=== PATIENT | female | born 1950 | race Caucasian/White ===

== ENCOUNTER 2019-01-25 18:25 | Inpatient (IN) | payer MEDICARE, MEDICAID ==
[~2019-01-25] VITALS: Ht 157.5 cm; Wt 79.4 kg
[~2019-01-25 18:25] MED LIST: ALBU6.7H IH; FLUO-191 PO; HYDR-4031 PO; LISI-661 PO; OMEP20 PO; QUET100T PO; TOPI100T37 PO; TRAZ-220 PO
[2019-01-25 19:01] LABS: BASOPHILS % (AUTO) 1.4 % (0.0-2.0); EOSINOPHILS % (AUTO) 1.3 % (1.0-6.0); HEMATOCRIT 34.8 % (36-46); HEMOGLOBIN 11.8 g/dL (12.0-16.0); LYMPHOCYTES # (AUTO) 1.8 K/uL (1.0-4.8); LYMPHOCYTES % (AUTO) 36.3 % (22.0-44.0); MEAN CORPUSCULAR HGB CONC 33.7 G/dL (31.0-37.0); MEAN CORPUSCULAR VOLUME 89 fL (80-100); MONOCYTES # (AUTO) 0.4 K/uL (0.1-1.0); MONOCYTES % (AUTO) 7.7 % (2.0-9.0); NEUTROPHILS # (AUTO) 2.7 K/uL (1.8-7.7); NEUTROPHILS % (AUTO) 53.3 % (40.0-70.0); PLATELET COUNT (AUTO) 348 K/uL (150-450); RED BLOOD CELL COUNT(AUTO) 3.92 MIL/uL (4.00-5.20); RED CELL DISTRIBUTION WIDTH 13.8 % (11.5-14.5)
[2019-01-25 19:11] LABS: ANION GAP 12 mmol/L (8-16); CALCIUM, TOTAL 8.9 mg/dL (8.8-10.5); CARBON DIOXIDE 23 mmol/L (22-29); CHLORIDE 106 mmol/L (98-107); GLOMERULAR FILTR. RATE CALC 45 mL/min (>60); GLUCOSE,RANDOM 99 mg/dL (70-110); POTASSIUM 3.2 mmol/L (3.5-5.1); SODIUM SERUM 141 mmol/L (136-145); UREA NITROGEN, BLOOD 15 mg/dL (7-18)
[2019-01-25 19:16] LABS: ALANINE AMINOTRANSFERASE 26 U/L (12-78); ALBUMIN 3.5 g/dL (3.4-5.0); ALKALINE PHOSPHATASE 116 U/L (46-116); ASPARTATE AMINOTRANSFERASE 17 U/L (15-37); BILIRUBIN,TOTAL 0.4 mg/dL (0.1-1.0); TOTAL PROTEIN, SERUM 7.6 g/dL (6.4-8.2)
[2019-01-25] MEDS ORDERED: LORazepam 1 MG TABLET PO PRN (20:00)
[2019-01-25] MEDS ORDERED: HALOPERIDOL 5 MG TABLET PO PRN (20:00)
[2019-01-25] MEDS ORDERED: ZOLPIDEM TARTRATE 10 MG TABLET PO PRN (20:00)
[2019-01-25 20:46] LABS: HEMOGLOBIN A1C 5.9 % (4.5-6.2)
[2019-01-25 20:57] LABS: CHOL/HDL RATIO 2.2 (3.9-5.7); CHOLESTEROL 182 mg/dL (131-200); FREE T4 (FREE THYROXINE) 1.17 ng/dL (0.76-1.46); HDL CHOLESTEROL 81 mg/dL (40-60); LDL CHOL (CALC.) 87 mg/dL (0-130); THYROID STIMULATING HORMONE 1.42 uIU/mL (0.36-3.74); TRIGLYCERIDES 71 mg/dL (15-150)
[2019-01-25] MEDS ORDERED: POTASSIUM CHLORIDE 10% 40 MEQ/30 ML LIQUID UDCUP PO ONE (21:15)
[2019-01-25 22:39] VITALS: BP 140/66
[2019-01-25] MEDS ORDERED: BENZOCAINE/MENTHOL LOZENGE MM PRN (23:30)
[2019-01-25] MEDS ORDERED: ONDANSETRON HCL 4 MG TABLET PO PRN (23:30)
[2019-01-25] MEDS ORDERED: ALBUTEROL SULFATE HFA 90 MCG/PUFF 8 GM INHALER IH PRN (23:30)
[2019-01-25] MEDS ORDERED: ACETAMINOPHEN 325 MG TABLET PO PRN (23:30)
[2019-01-25] MEDS ORDERED: MAG HYDROX/AL HYDROX/SIMETH ES 30 ML SUSPENSION UDCUP PO PRN (23:30)
[2019-01-25] MEDS ORDERED: PETROLATUM,WHITE 28 GM JELLY TP PRN (23:30)
[2019-01-25] MEDS ORDERED: MAGNESIUM HYDROXIDE SUSPENSION 30 ML UDCUP PO PRN (23:30)
[2019-01-25] MEDS ORDERED: CloNIDine HCL 0.1 MG TABLET PO PRN (23:30)
[2019-01-25] MEDS ORDERED: BACITRACIN 28.4 GM OINTMENT TP PRN (23:30)
[2019-01-25] MEDS ORDERED: LOPERAMIDE HCL 2 MG CAPSULE PO PRN (23:30)
[2019-01-26] MEDS: DOCUSATE SODIUM 100 MG CAPSULE PO SCH (10:09)
[2019-01-26] MEDS: OMEPRAZOLE 20 MG CAPSULE PO SCH (10:09)
[2019-01-26 12:46] VITALS: BP 159/86
[2019-01-26 16:18] VITALS: BP 113/81
[2019-01-26] MEDS: TOPIRAMATE 100 MG TABLET PO SCH (16:29)
[2019-01-26] MEDS: METOPROLOL TARTRATE 25 MG TABLET PO SCH (16:30)
[2019-01-26 20:38] VITALS: BP 122/82
[2019-01-26] MEDS: IBUPROFEN 600 MG TABLET PO PRN (20:38)
[2019-01-26] MEDS ORDERED: OLANZapine 5 MG TABLET PO SCH (21:00)
[2019-01-27 07:00] LABS: POTASSIUM 4.2 mmol/L (3.5-5.1)
[2019-01-27 08:05] VITALS: BP 138/72
[2019-01-27] MEDS ORDERED: DULoxetine HCL 30 MG CAPSULE PO SCH (09:00)
[2019-01-27] MEDS: CHOLECALCIFEROL (VIT D3) 1,000 UNITS TABLET PO SCH (09:14)
[2019-01-27] MEDS: ASPIRIN 81 MG EC TABLET PO SCH (09:15)
[2019-01-27] MEDS: OMEPRAZOLE 20 MG CAPSULE PO SCH (09:15)
[2019-01-27] MEDS: LISINOPRIL 20 MG TABLET PO SCH (09:15)
[2019-01-27] MEDS: METOPROLOL TARTRATE 25 MG TABLET PO SCH ×2 (09:15→16:43)
[2019-01-27] MEDS: DOCUSATE SODIUM 100 MG CAPSULE PO SCH (09:15)
[2019-01-27] MEDS: TOPIRAMATE 100 MG TABLET PO SCH ×2 (09:16→16:42)
[2019-01-27] MEDS ORDERED: DULoxetine HCL 30 MG CAPSULE PO ONE (12:45)
[2019-01-27 19:18] VITALS: BP 134/60
[2019-01-27] MEDS ORDERED: OLANZapine 10 MG TABLET PO SCH (21:00)
[2019-01-28 07:10] LABS: ANION GAP 12 mmol/L (8-16); CARBON DIOXIDE 19 mmol/L (22-29); CHLORIDE 109 mmol/L (98-107); CREATININE 0.91 mg/dL (0.60-1.30); GLOMERULAR FILTR. RATE CALC > 60 mL/min (>60); GLUCOSE,RANDOM 103 mg/dL (70-110); POTASSIUM 3.8 mmol/L (3.5-5.1); SODIUM SERUM 140 mmol/L (136-145); UREA NITROGEN, BLOOD 17 mg/dL (7-18)
[2019-01-28] MEDS: METOPROLOL TARTRATE 25 MG TABLET PO SCH ×2 (08:38→16:20)
[2019-01-28] MEDS: OMEPRAZOLE 20 MG CAPSULE PO SCH (08:38)
[2019-01-28] MEDS: CHOLECALCIFEROL (VIT D3) 1,000 UNITS TABLET PO SCH (08:38)
[2019-01-28] MEDS: ASPIRIN 81 MG EC TABLET PO SCH (08:39)
[2019-01-28] MEDS: TOPIRAMATE 100 MG TABLET PO SCH ×2 (08:39→16:20)
[2019-01-28] MEDS: DOCUSATE SODIUM 100 MG CAPSULE PO SCH (08:39)
[2019-01-28] MEDS: LISINOPRIL 20 MG TABLET PO SCH (08:39)
[2019-01-28 08:45] VITALS: BP 160/71
[2019-01-28] MEDS: IBUPROFEN 600 MG TABLET PO PRN (08:57)
[2019-01-28] MEDS ORDERED: DULoxetine HCL 60 MG CAPSULE PO SCH (09:00)
[2019-01-28] MEDS ORDERED: OLAN10TA3 PO (15:58)
[2019-01-28] MEDS ORDERED: DULO60CA44 PO (15:59)
[2019-01-28] MEDS ORDERED: METO25 PO (16:00)
[2019-01-28] MEDS ORDERED: LISI-662 PO (16:00)
[2019-01-28] MEDS ORDERED: OMEP20 PO (16:01)
[2019-01-28] MEDS ORDERED: DSS100 PO (16:01)
[2019-01-28] MEDS ORDERED: ASPI81 PO (16:02)
[2019-01-28] MEDS ORDERED: VITAD1000 PO (16:02)
[2019-01-28] MEDS ORDERED: MVITFE PO (16:03)
[2019-01-29] MEDS ORDERED: MULTIVITAMINS WITH IRON TABLET PO SCH (08:00)
== END 2019-01-28 17:15 | disposition home or self-care (01) | DRG 885 ==
LOC: EMS 18:27 → 3EI 21:17
PROVIDERS: ADMIT Psychiatry & Neurology Psychiatry; ATTEND Psychiatry & Neurology Psychiatry
DX: F25.0 Schizoaffective disorder, bipolar type (principal); F41.9 Anxiety disorder, unspecified; I10 Essential (primary) hypertension; I73.00 Raynaud's syndrome without gangrene; K21.9 Gastro-esophageal reflux disease without esophagitis; E87.6 Hypokalemia; E55.9 Vitamin D deficiency, unspecified; K59.00 Constipation, unspecified; M19.90 Unspecified osteoarthritis, unspecified site; N28.9 Disorder of kidney and ureter, unspecified; Z79.82 Long term (current) use of aspirin; Z79.899 Other long term (current) drug therapy; Z86.73 Personal history of transient ischemic attack (TIA), and cerebral infarction without residual deficits; Z87.891 Personal history of nicotine dependence; Z88.0 Allergy status to penicillin; Z88.6 Allergy status to analgesic agent
CPT/HCPCS: 83036; 84132; 84295; 84439; 84443; G0480

== ENCOUNTER 2019-07-27 20:24 | Emergency (ER) | payer MEDICARE, MEDICAID ==
[~2019-07-27] VITALS: Ht 160 cm; Wt 83.6 kg
[~2019-07-27 20:24] MED LIST changes: -ALBU6.7H IH; +ASPI81 PO; +DULO60CA44 PO; -FLUO-191 PO; -HYDR-4031 PO; -LISI-661 PO; +LISI-662 PO; +METO25 PO; +OLAN10TA3 PO; +OLAN5TAB2 PO; -OMEP20 PO; -QUET100T PO; -TRAZ-220 PO
[2019-07-27] MEDS ORDERED: ARIP10TA8 PO (21:17)
[2019-07-27] MEDS ORDERED: GABA-533 PO (21:17)
[2019-07-27] MEDS ORDERED: CLON-570 PO (21:17)
[2019-07-27] MEDS ORDERED: FURO20 PO (21:17)
[2019-07-27] MEDS ORDERED: FERR-89 PO (21:17)
[2019-07-27 21:44] LABS: EOSINOPHILS % (AUTO) 1.6 % (1.0-6.0); HEMATOCRIT 37.9 % (36-46); HEMOGLOBIN 12.5 g/dL (12.0-16.0); LYMPHOCYTES # (AUTO) 2.1 K/uL (1.0-4.8); LYMPHOCYTES % (AUTO) 29.4 % (22.0-44.0); MEAN CORPUSCULAR HEMOGLOBIN 31.2 pg (26.0-34.0); MEAN CORPUSCULAR HGB CONC 32.9 G/dL (31.0-37.0); MEAN CORPUSCULAR VOLUME 95 fL (80-100); MONOCYTES # (AUTO) 0.7 K/uL (0.1-1.0); MONOCYTES % (AUTO) 10.2 % (2.0-9.0); NEUTROPHILS # (AUTO) 4.2 K/uL (1.8-7.7); NEUTROPHILS % (AUTO) 57.8 % (40.0-70.0); PLATELET COUNT (AUTO) 338 K/uL (150-450); RED CELL DISTRIBUTION WIDTH 16.7 % (11.5-14.5)
[2019-07-27 21:50] LABS: AMPHET/METH SCREEN,URINE POSITIVE (NEGATIVE); BARBITURATE SCREEN, URINE NEGATIVE (NEGATIVE); BENZODIAZEPINES SCREEN,URINE NEGATIVE (NEGATIVE); CANNABINOID SCREEN,URINE NEGATIVE (NEGATIVE); COCAINE SCREEN,URINE NEGATIVE (NEGATIVE); METHADONE SCREEN, URINE NEGATIVE (NEGATIVE); OPIATE SCREEN,URINE NEGATIVE (NEGATIVE)
[2019-07-27 21:51] LABS: PHENCYCLIDINE SCREEN,URINE NEGATIVE (NEGATIVE)
[2019-07-27 21:56] LABS: ANION GAP 12 mmol/L (8-16); CALCIUM, TOTAL 8.9 mg/dL (8.8-10.5); CARBON DIOXIDE 24 mmol/L (22-29); CHLORIDE 108 mmol/L (98-107); GLOMERULAR FILTR. RATE CALC 38 mL/min (>60); GLUCOSE,RANDOM 104 mg/dL (70-110); POTASSIUM 3.9 mmol/L (3.5-5.1); SODIUM SERUM 144 mmol/L (136-145); UREA NITROGEN, BLOOD 23 mg/dL (7-18)
[2019-07-27 22:02] LABS: ALANINE AMINOTRANSFERASE 39 U/L (12-78); ALBUMIN 3.8 g/dL (3.4-5.0); ALKALINE PHOSPHATASE 145 U/L (46-116); ASPARTATE AMINOTRANSFERASE 53 U/L (15-37); BILIRUBIN,TOTAL 0.7 mg/dL (0.1-1.0)
[2019-07-27 23:12] VITALS: BP 141/83
== END 2019-07-27 23:12 | disposition home or self-care (01) ==
LOC: EMS 21:24
DX: R45.1 Restlessness and agitation (principal); F17.210 Nicotine dependence, cigarettes, uncomplicated; F41.9 Anxiety disorder, unspecified; F31.9 Bipolar disorder, unspecified; F20.9 Schizophrenia, unspecified; I10 Essential (primary) hypertension; Z88.0 Allergy status to penicillin; Z88.5 Allergy status to narcotic agent; Z79.899 Other long term (current) drug therapy; Z79.82 Long term (current) use of aspirin
CPT/HCPCS: 36415; 80053; 80307; 85025; 99285; 99406; G0480

== ENCOUNTER 2021-04-26 14:13 | Emergency (ER) | payer MEDICARE, MEDICAID ==
[~2021-04-26] VITALS: Ht 165.1 cm; Wt 75.0 kg
[~2021-04-26 14:13] MED LIST changes: +ARIP10TA38 PO; +ASPI-1450 PO; -ASPI81 PO; +CLON0.1T2 PO; -DULO60CA44 PO; +FERR-89 PO; +FURO20 PO; +GABA-1201 PO; -LISI-662 PO; +LISI-894 PO; -OLAN10TA3 PO; -OLAN5TAB2 PO
[2021-04-26 14:51] LABS: BASOPHILS % (AUTO) 0.3 % (0.0-2.0); EOSINOPHILS % (AUTO) 0 % (1.0-6.0); HEMATOCRIT 34.2 % (36-46); HEMOGLOBIN 11.2 g/dL (12.0-16.0); LYMPHOCYTES # (AUTO) 1.1 K/uL (1.0-4.8); LYMPHOCYTES % (AUTO) 8.3 % (22.0-44.0); MEAN CORPUSCULAR HEMOGLOBIN 31.2 pg (26.0-34.0); MEAN CORPUSCULAR HGB CONC 32.8 G/dL (31.0-37.0); MEAN CORPUSCULAR VOLUME 95 fL (80-100); MONOCYTES # (AUTO) 0.7 K/uL (0.1-1.0); MONOCYTES % (AUTO) 5.8 % (2.0-9.0); NEUTROPHILS # (AUTO) 10.9 K/uL (1.8-7.7); PLATELET COUNT (AUTO) 361 K/uL (150-450); RED CELL DISTRIBUTION WIDTH 18.4 % (11.5-14.5)
[2021-04-26 14:52] LABS: NEUTROPHILS % (AUTO) 85.6 % (40.0-70.0)
[2021-04-26 15:11] LABS: ANION GAP 12 mmol/L (8-16); CALCIUM, TOTAL 8.7 mg/dL (8.8-10.5); CARBON DIOXIDE 21 mmol/L (22-29); CHLORIDE 107 mmol/L (98-107); CREATININE 2.33 mg/dL (0.60-1.30); GLOMERULAR FILTR. RATE CALC 21 mL/min (>60); GLUCOSE,RANDOM 105 mg/dL (70-110); SODIUM SERUM 140 mmol/L (136-145); UREA NITROGEN, BLOOD 28 mg/dL (7-18)
[2021-04-26 15:17] LABS: ALANINE AMINOTRANSFERASE 38 U/L (12-78); ALBUMIN 3.3 g/dL (3.4-5.0); ALKALINE PHOSPHATASE 172 U/L (46-116); ASPARTATE AMINOTRANSFERASE 64 U/L (15-37); BILIRUBIN,TOTAL 1.6 mg/dL (0.1-1.0)
[2021-04-26 17:33] VITALS: BP 147/83
== END 2021-04-26 18:36 | disposition home or self-care (01) ==
LOC: EMS 14:17
DX: F20.0 Paranoid schizophrenia (principal); L03.114 Cellulitis of left upper limb; F31.9 Bipolar disorder, unspecified; F32.9 Major depressive disorder, single episode, unspecified; I10 Essential (primary) hypertension
CPT/HCPCS: 36415; 80053; 85025; 99284; G0480